=== PATIENT | female | born 1930 | race Caucasian/White ===

== ENCOUNTER 2017-12-22 21:31 | Inpatient (IN) | payer OTHER ==
[~2017-12-22] VITALS: Ht 165.1 cm; Wt 51.7 kg
[~2017-12-22 21:31] MED LIST: ALPRAZOLAM 0.50.5 M1 PO; ATENOLOL 25 MG25 M1 PO; BENTYL10 MG PO; CARAFATE 1 GM TA1 G1 PO; CEPHALEXIN 500500 M2 PO; COZAAR 50 MG TA50 M2 PO; DEXILANT30 MG PO; DEXILANT60 MG PO; DULCOLAX5 MG PO; FLOMAX0.4 MG PO; LOSARTAN POTASS50 MG; LUMIGAN2.5 M1 OP; MAGIC MOUTHWASH SWISH&SPIT; MIRALAX17 GM PO; MISC; NITROFURANTOIN100 MG PO; PREVALITE; PRIMSOL50 MG/5 ML PO; PROLOPRIM100 MG PO; SENOKOT-S1 TA1 PO; SERTRALINE HCL50 MG PO; SLO-NIACIN250 MG PO; ZANTAC 150MG T150 M1 PO
[2017-12-22 21:35] VITALS: BP 151/52
[2017-12-22 22:36] LABS: URINE BILIRUBIN NEGATIVE (Negative); URINE BLOOD NEGATIVE (Negative); URINE CLARITY CLEAR; URINE COLOR YELLOW; URINE GLUCOSE-RANDOM NEGATIVE (Negative); URINE KETONES NEGATIVE (Negative); URINE LEUKOCYTES-REFLEX NEGATIVE (Negative); URINE NITRITE-REFLEX NEGATIVE (Negative); URINE PROTEIN NEGATIVE (Negative); URINE UROBILINOGEN 0.2 E.U./dl (0.2-1.0)
[2017-12-22 22:47] LABS: ABSOLUTE LYMPHOCYTES 1.1 thou/uL (0.8-5.3); ABSOLUTE MONOCYTES 0.4 thou/uL (0.0-1.2); ABSOLUTE NEUTROPHILS 2.8 thou/uL (1.6-8.1); BASOPHILS 0.9 %; EOSINOPHILS 0.7 %; HEMATOCRIT 34.5 % (37.0-47.0); HEMOGLOBIN 11.6 gm/dL (12.0-15.0); LYMPHOCYTES 24.3 %; MCH 29.5 pg (26.0-34.0); MCHC 33.8 g/dL (28.0-37.0); MCV 87.3 fL (80.0-100.0); MONOCYTES 9.8 %; MPV 9.5 fl. (7.2-11.1); NUCLEATED RBCS 0 /100WBC; PLATELET COUNT* 147 thou/uL (150-400); POLYS 64.3 %; RBC 3.95 mil/uL (4.20-5.00); RDW-CV 13.4 % (10.5-14.5); WBC 4.4 thou/uL (4.0-11.0)
[2017-12-22 22:56] LABS: ANION GAP 6 mmol/L (7-16); BUN 17 mg/dL (7-18); CALCIUM 9.6 mg/dL (8.5-10.1); CHLORIDE 104 mmol/L (98-107); CO2 30 mmol/L (21-32); CREATININE 0.7 mg/dL (0.6-1.3); GLUCOSE 83 mg/dL (70-99); POTASSIUM 3.8 mmol/L (3.5-5.1); SODIUM 140 mmol/L (136-145)
[2017-12-22 23:07] LABS: ALBUMIN 3.9 g/dL (3.4-5.0); ALKALINE PHOSPHATASE 98 U/L (46-116); NT-PRO BRAIN NAT PEPTIDE 247 pg/mL (<300); SGOT 18 U/L (15-37); SGPT 19 U/L (30-65); TOTAL BILIRUBIN 0.3 mg/dL (<0.1-1.0); TOTAL PROTEIN 7.2 g/dL (6.4-8.2); TROPONIN-I LEVEL <0.06 ng/mL (<0.06)
[2017-12-23] VITALS (7 sets, daily range): BP systolic 121–145; BP diastolic 46–60
[2017-12-23] MEDS ORDERED: ASPIR 8181 M1 PO (04:29)
--- NOTE | 2017-12-23 06:41 | NUR ---
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
--- NOTE | 2017-12-23 13:08 | EKG ---
[place] [address] ELECTROCARDIOGRAM REPORT Name: PELON GARCIA Room: [address] IN [facility]#: [id number] Admission: 12/23/17 Attend Phys: Denisha Amato Discharge: Date of : 32 Report #: [id number] THIS REPORT FOR: //name// [facility] ED Test Date: 2017-12-22 Test Time: 22:32:11 Pat Name: PELON GARCIA Department: Room: Gender: F Clinical Office Technician: : 1930 Requested By: Mona Joyce Order Number: [id number] MD: Jeancarlos Eisenberg Measurements Intervals [place] Rate: 65 P: 0 MD: 54 QRS: -36 QRSD: 100 T: 55 QT: 415 QTc: 432 Interpretive Statements Sinus rhythm Atrial premature complexes Short MD interval Left axis deviation Compared to ECG 05/16/2016 19:19:33 Short MD interval now present Electronically Signed On 12-23-2017 13:08:29 CDT by Jeancarlos Eisenberg [email or web address] <ELECTRONICALLY SIGNED> By: Jeancarlos Eisenberg MD, [facility] 12/23/17 1308 31 31 Jeancarlos Eisenberg MD, [facility] /EPI
--- NOTE | 2017-12-23 13:36 | NUR ---
ASSUMED PT CARE AT 0700 PT IS ALERT AND ORIENTED X 4 PT IS UP WITH SBA PT IS A FALL RISK BED ALARM IS ON PT IS GETTING UP WITHOUT NOTIFYING STAFF PT HAS BEEN EDUCATED AND REEDUCATED PT STATES UNDERSTANDING AND THEN REFUSED TO CALL, PT WANTS TO DISCHARGE THIS NURSE EXPLAINED THAT THE OHYSICIAN IS THE ONE WHO WILL PUT IN ORDERS FOR DISCHARGE OR PT CAN LEAVE AGAINST MEDICAL ADVICE PT STATES SHE WILL THINK ABOUT IT, PT CONTINUES TO BE AGITAED AND INAPPROPRIATE YELLING AT STAFF PHYSICIAN IS NOTIFIED AND PT EDUCATED THAT PT IS AWARE AND WILL ROUND, PT IS SR ON THE MONITOR, WILL CONTINUE TO MONITOR
[2017-12-23] MEDS ORDERED: PLAVIX 75 MG TA75 M1 PO (17:07)
[2017-12-24 03:42] VITALS: BP 125/69
--- NOTE | 2017-12-24 05:07 | NUR ---
ASSUMED CARE OF PATIENT AT 1900 THE PATIENT SB ON MONITOR DURING SHIFT NOTED PAUSES AT APPROX 0030 PATIENT REMAINED ASYMPTOMATIC RHYTHM CHANGED FROM SR TO SB EKG OBTAINIED DUE TO SHIFT WITHOUT SIGNIGFICANT FINDINGS REMAINS ADMISSION EKG PHYSICIAN TO BE NOTIFIED IN AM WITHOUT S/SX OF ACUTE DISTRESS O2 SAT MAINTAINED ON RA CONTINUES TO BE UP WITH ASSIST OF 1 TO THE BR ROUTINE REGIMEN CONTINUES TO BE EFFECTIVE FOR SX MANAGEMENT SAFETY INTERVENTIONS CONTINUE BED LOWERED WHEELS LOCKED CALL LIGHT IN REACH SIDE RAILS UP REPORT TO BE GIVEN TO ONCOMING TASHA
[2017-12-24 08:00] VITALS: BP 169/53
--- NOTE | 2017-12-24 10:23 | NUR ---
ASSUMED CARE OF PT AT 0730. PT RESTING IN BED WAITING FOR BREAKFAST. PT A&0X4, DENIES ANY PAIN OR SHORTNESS OF BREATH AT THIS TIME. PT TRACING SB WITH PAC'S ON THE RESTAURANT GENERAL MANAGER. CARDIOLOGY CONSULT IN PLACE FOR PAUSES. PT ON RA SAT 94%. EDEMA NOTED TO BILATERAL LE. PT UP SBA TO BATHROOM. AM ASSESSMENT CHARTED. MEDICATIONS PER MAR. PT REPOSITIONS SELF. HOURLY ROUNDING OBSERVED. BED IN LOW POSITION. BED ALARM IN PLACE. CALL LIGHT WITHIN REACH. WILL CONTINUE PLAN OF CARE.
[2017-12-24 13:06] VITALS: BP 150/63
--- NOTE | 2017-12-24 13:22 | EKG ---
[place] [address] ELECTROCARDIOGRAM REPORT Name: PELON GARCIA Room: [address] ADM IN M.R.#: [id number] Admission: 12/23/17 Attend Phys: Denisha Amato Discharge: Date of : 32 Report #: [id number] THIS REPORT FOR: //name// [facility] Test Date: 2017-12-23 Test Time: 23:29:25 Pat Name: PELON GARCIA Department: Room: [address] Gender: F Log Sorting Supervisor: UNKNOWN : 1930 Requested By: Juan Brandt Order Number: [id number] MD: Jeancarlos Eisenberg Measurements Intervals [place] Rate: 55 P: -90 IL: 113 QRS: -31 QRSD: 109 T: 38 QT: 461 QTc: 441 Interpretive Statements Sinus or ectopic atrial rhythm Borderline short [place] interval Left axis deviation Compared to ECG 12/22/2017 22:32:11 Ectopic atrial rhythm now present Sinus rhythm no longer present Atrial premature complex(es) no longer present Electronically Signed On 12-24-2017 13:21:45 CDT by Jeancarlos Eisenberg [email or web address] <ELECTRONICALLY SIGNED> By: Jeancarlos Eisenberg MD, FAC 12/24/17 1321 2329 2329 Jeancarlos Eisenberg MD, FACC /EPI
[2017-12-24 17:24] VITALS: BP 125/69
--- NOTE | 2017-12-24 17:34 | NUR ---
NO ACUTE CHANGES THROUGHOUT SHIFT. REFER TO CHARTING. CARDIOLOGY CONSULT IN PLACE- DR AGUDELO HERE TO SEE PT. ORDER RECEIVED FOR ECHO AND TO REMAIN ON TELEMETRY. URINALYSIS NEEDS TO BE OBTAINED. PT CONTINUES TO TRACE SB WITH PAC'S ON THE POLICE DETECTIVE. RATE IN THE 50'S. PT ASYMPTOMATIC. PT ST WITH ACTIVITY. ON RA SAT UPPER 90'S. DENIES ANY SHORTNESS OF BREATH. PT UP SBA TO BATHROOM. PT UPSET THIS AFTERNOON NO FAMILY HAS CAME TO VISIT. THIS RN AND OTHER RN'S AND DR HOLLINGSWORTH IN TO CHEER PT UP. PT SAID THAT MADE HER FEEL BETTER. MEDICATIONS PER OCT. PT REPOSITIONS SELF. HOURLY ROUNDING OBSERVED. BED IN LOW POSITION. BED ALARM IN PLACE. FALL PRECAUTIONS IN PLACE. CALL LIGHT WITHIN REACH. WILL CONTINUE PLAN OF CARE.
[2017-12-24 20:10] VITALS: BP 124/61
[2017-12-24 23:53] VITALS: BP 122/66
[2017-12-25] VITALS (9 sets, daily range): BP systolic 86–142; BP diastolic 44–77
--- NOTE | 2017-12-25 05:36 | NUR ---
ASSUMED CARE AROUND 1930. PT A/OX4, ANXIOUS, [place]. PT TALKING ALOT ABOUT FAMILY ISSUES AND APPEARED STRESSED. PRN XANAX GIVEN. TELE MONITOR TRACING SR/PAC'S AND AFIB WITH HR 90-110'S. ON ROOM AIR. IV SALINE LOCKED. UP SBA TO BR. PT NOT USING CALL LIGHT, BEDALARM IN PLACE. VSS, LOW GRADE TEMP 99.2 AT START OF NIGHT. PT CONTINUES REPORTING HEARTBURN AND FOOT DISCOMFORT. SEE CHARTING. CALL LIGHT IN REACH, WILL CONTINUE WITH PLAN OF CARE.
[2017-12-25 11:52] LABS: ABSOLUTE LYMPHOCYTES 1.2 thou/uL (0.8-5.3); ABSOLUTE MONOCYTES 0.4 thou/uL (0.0-1.2); ABSOLUTE NEUTROPHILS 3.2 thou/uL (1.6-8.1); EOSINOPHILS 0.7 %; HEMATOCRIT 39.3 % (37.0-47.0); HEMOGLOBIN 13.1 gm/dL (12.0-15.0); LYMPHOCYTES 24.9 %; MCH 29.3 pg (26.0-34.0); MCHC 33.3 g/dL (28.0-37.0); MONOCYTES 7.8 %; MPV 10.1 fl. (7.2-11.1); NUCLEATED RBCS 0 /100WBC; PLATELET COUNT* 166 thou/uL (150-400); POLYS 65.6 %; RBC 4.47 mil/uL (4.20-5.00); RDW-CV 13.4 % (10.5-14.5); WBC 4.9 thou/uL (4.0-11.0)
[2017-12-25 12:06] LABS: ALBUMIN 3.3 g/dL (3.4-5.0); CALCIUM 8.8 mg/dL (8.5-10.1); CREATININE 0.7 mg/dL (0.6-1.3); POTASSIUM 3.6 mmol/L (3.5-5.1); TOTAL BILIRUBIN 0.5 mg/dL (<0.1-1.0); TOTAL PROTEIN 6.6 g/dL (6.4-8.2)
--- NOTE | 2017-12-25 13:06 | 2DMMODE ---
[place] [address] 2 D/M-MODE ECHOCARDIOGRAM Name: PELON GARCIA Room: [address] IN [facility]#: [id number] Admission: 12/23/17 Attend Phys: Juan Brandt Discharge: Date of : 32 Date of Service: 12/25/17 1306 Report #: [id number] THIS REPORT FOR: //name// APPROVED REPORT Study performed: 12/25/2017 09:37:16 EXAM: Comprehensive 2D, Doppler, and color-flow Echocardiogram Patient Location: In-Patient Room #: [facility] Status: routine BSA: 1.59 HR: 101 bpm BP: 142/74 mmHg Rhythm: Atrial Fibrillation Other Information Study Quality: Good Indications Arrhythmia Atrial Fibrillation 2D Dimensions LVEF(%): 68.25 (>50%) IVSd: 10.93 (7-11mm) LVOT Diam: 20.34 (18-24mm) LVDd: 41.91 mm PWd: 8.75 (7-11mm) Ascending Ao: 35.77 (22-36mm) LVDs: 26.09 (25-40mm) Aortic Root: 29.56 mm Lazo's LVEF: 68.25 % Volumes Left Atrial Volume (Systole) LA ESV Index: 51.30 mL/m2 Aortic Valve AoV Peak Jerry.: 1.11 m/s AO Peak Gr.: 4.95 mmHg LVOT Max P.67 mmHg AO Mean Gr.: 2.49 mmHg LVOT Mean P.09 mmHg LVOT Max V: 0.82 m/s AO V2 VTI: 18.19 cm LVOT Mean V: 0.46 m/s NICOLLE (VTI): 2.55 cm2 LVOT V1 VTI: 14.28 [place] [address] 2 D/M-MODE ECHOCARDIOGRAM Name: PELON GARCIA Room: [address] IN ..#: [id number] Admission: 12/23/17 Attend Phys: Juan Brandt Discharge: Date of : 32 Date of Service: 12/25/17 1306 Report #: [id number] MV Decel. Time: 160.66 ms MV PHT: 46.59 ms MVA (PHT): 4.72 cm2 TDI Medial E' Jerry.: 0.10 m/s Lateral E' Jerry.: 0.11 m/s Pulmonary Valve PV Peak Jerry.: 1.50 m/s PV Peak Gr.: 9.04 mmHg Tricuspid Valve TR Peak Gr.: 22.10 mmHg RVSP: 27.00 mmHg Left Ventricle The left ventricle is normal size. There is normal LV segmental wall motion. There is normal left ventricular wall thickness. Left ventricular systolic function is normal. The left ventricular ejection fraction is within the normal range. LVEF is 55-60%. This study is not technically sufficient to allow evaluation of the LV diastolic function due to atrial fibrillation. Right Ventricle The right ventricle is normal size. The right ventricular systolic function is normal. Atria Left atrium is severely dilated. Right atrium is mildly dilated. Aortic Valve Mild aortic valve sclerosis. No aortic regurgitation is present. There is no aortic valvular stenosis. Mitral Valve The mitral valve is normal in structure. Mild mitral regurgitation. No evidence of mitral valve stenosis. Tricuspid Valve The tricuspid valve is normal in structure. Mild tricuspid regurgitation. The RVSP is ___27___ mmHg. Pulmonic Valve The pulmonary valve is normal in structure. [place] [address] 2 D/M-MODE ECHOCARDIOGRAM Name: PELON GARCIA Berry Room: [address] IN [facility]#: [id number] Admission: 12/23/17 Attend Phys: Juan Brandt Discharge: Date of : 32 Date of Service: 12/25/17 1306 Report #: [id number] Great Vessels The aortic root is normal in size. IVC is normal in size and collapses with >50% inspiration Pericardium There is no pericardial effusion. <Conclusion> LVEF is 55-60%. Mild mitral regurgitation. Left atrium is severely dilated. Right atrium is mildly dilated. <ELECTRONICALLY SIGNED> By: Mehran Goddard MD, [facility] 12/25/17 1306 05 05 Mehran Goddard MD, FACC /INF
[2017-12-25 15:19] LABS: URINE BILIRUBIN NEGATIVE (Negative); URINE BLOOD NEGATIVE (Negative); URINE CLARITY CLEAR; URINE COLOR YELLOW; URINE GLUCOSE-RANDOM NEGATIVE (Negative); URINE KETONES NEGATIVE (Negative); URINE LEUKOCYTES NEGATIVE (Negative); URINE NITRITE NEGATIVE (Negative); URINE PROTEIN NEGATIVE (Negative); URINE UROBILINOGEN 0.2 E.U./dl (0.2-1.0)
--- NOTE | 2017-12-25 16:12 | NUR ---
Pt is A&O. Resides at home with dtr and dtr's boyfriend. Pt very bitter regarding how much her "life has sucked." Pt reports being independent with ADLs, continue to cook and clean. Dtr's BF does the driving or Pt uses a cab. Pt has a walker and cane at home that she can use as needed, stated that she has not needed to use either yet. Pt stated that she had a fall here in the hospital, nurse aware. CM left SNF list with Pt in case she needs skilled at dc. No hx of HH or SNF. Following.
--- NOTE | 2017-12-25 17:29 | NUR ---
ASSUMED PT CARE AT 0730, FULL ASSESMENT DONE CHARTED. PT A/O X3 THIS AM, X4 THIS AFTERNOON. PT HAS SOME MILD CONFUSION, PT BECOMES UPSET WHEN ASKED ORIENTATION QUESTIONS. PTS BP BECAME LOW THIS AFTERNOON, PT DENIES DIZZYNESS. PT WAS IN THE BATHROOM AND STATES" MY LEGS GAVE OUT, PT CALLED FOR STAFF AND WAS FOUND ON HER KNEES IN FRONT OF SINK. PTS HR IN THE 130-140'S AND BP LOW. PT HELPED BACK TO BED AND MONITORED CLOSLY. PT INSTRUCTED NOT TO GET OUT OF BEED WITHOUT HELP. PT VERBALIZED UNDERSTANDING. PT VERBALIZEES WANT TO GO HOME TOMORROW. DISCUSSED PLAN OF CARE WITH PT, SHE IS RESTING IN BED COMFORTABLY AT THIS TIME. WILL CONTINUE TO MONITOR.
[2017-12-26 00:51] VITALS: BP 98/44
--- NOTE | 2017-12-26 03:05 | NUR ---
ASSUMED PT CARE AT 1930, PT IS A&OX4, PT REQUESTED PRN ANIXIETY MEDICATION, MEDICATION GIVEN PER OCT. PT IS TRACING AFIB ON THE MONITOR, ON RA SATTING MID TO HIGH 90'S. PT IS UP WITH ONE TO THE BSC, PT USES HER CALL LIGHT. PT IS VERY [place]. BED IN LOW POSITION, CALL LIGHT IN REACH, BED ALARM ON, YELLOW ARM BAND AND SOCKS IN PLACE. HOURLY ROUNDING COMPLETED FOR PT SAFETY.
[2017-12-26 04:43] VITALS: BP 104/65
[2017-12-26 07:45] VITALS: BP 129/78
--- NOTE | 2017-12-26 09:33 | NUR ---
ASSUMED PT CARE AT 0730, FULL ASSESMENT DONE CHARTED.PT A/O X4, ANXIOIUS, STATES SHE WANTS TO KNOW IF SHE IS GOING HOME TODAY. PTS VSS, AFIB ON THE MONITOR. PT EDUCATED ON MEDS. SHE VERBALIZED UNDERSTANDING. FALL PRECATUIONS IN PLACE. BED ALARM ON, CALL LIGHT IN REACH. WILL CONTINUE WITH PLAN OF CARE.
[2017-12-26 11:33] VITALS: BP 129/78
--- NOTE | 2017-12-26 11:49 | NUR ---
RECEIEVED O.T. ORDER AND CHART REVIEWED. PT. DENIES ANY NEED FOR O.T. SERVICES AND SAYS SHE IS INDEPENDENT WITH ADLS/IADLS AT HOME. O.T. REMINDED PT. THAT HER KNEES BUCKLED YESTERDAY AND SHE STATES SHE IS GOING HOME TODAY AND HAS A CARD TO NOTIFY SOMEONE IF SHE NEEDS ANYTHING. THUS, O.T. SERVICES ARE NOT INDICATED PER PT. PREFERENCE AT THIS TIME.
[2017-12-26 11:58] VITALS: BP 123/71
[2017-12-26] MEDS ORDERED: FLECAINIDE ACET50 M1 PO (12:33)
[2017-12-26 14:59] VITALS: BP 102/56
== END 2017-12-26 16:32 | disposition home or self-care (01) | DRG 300 ==
LOC: M.ERS 21:31 → M.TBA-ER 12-23 01:33 → M.2W 12-23 01:33
PROVIDERS: Internal Medicine; Personal Emergency Response Attendant; ADMIT Internal Medicine
DX: I73.9 Peripheral vascular disease, unspecified (principal); I48.92 Unspecified atrial flutter; D68.59 Other primary thrombophilia; K27.9 Peptic ulcer, site unspecified, unspecified as acute or chronic, without hemorrhage or perforation; I25.10 Atherosclerotic heart disease of native coronary artery without angina pectoris; J44.9 Chronic obstructive pulmonary disease, unspecified; I10 Essential (primary) hypertension; F41.9 Anxiety disorder, unspecified; F17.210 Nicotine dependence, cigarettes, uncomplicated; K21.9 Gastro-esophageal reflux disease without esophagitis; H81.90 Unspecified disorder of vestibular function, unspecified ear; F32.9 Major depressive disorder, single episode, unspecified; Z88.0 Allergy status to penicillin; Z88.2 Allergy status to sulfonamides; Z98.890 Other specified postprocedural states

== ENCOUNTER 2018-01-15 23:02 | Emergency (ER) | payer OTHER ==
[~2018-01-15] VITALS: Ht 165.1 cm
[~2018-01-15 23:02] MED LIST changes: +ASPIR 8181 M1 PO; +FLECAINIDE ACET50 M1 PO; +PLAVIX 75 MG TA75 M1 PO
[2018-01-15 23:52] LABS: ABSOLUTE LYMPHOCYTES 1.1 thou/uL (0.8-5.3); ABSOLUTE MONOCYTES 0.3 thou/uL (0.0-1.2); BASOPHILS 0.9 %; EOSINOPHILS 0.9 %; HEMATOCRIT 35.3 % (37.0-47.0); HEMOGLOBIN 11.9 gm/dL (12.0-15.0); LYMPHOCYTES 23.8 %; MCH 29.2 pg (26.0-34.0); MCHC 33.8 g/dL (28.0-37.0); MCV 86.5 fL (80.0-100.0); MONOCYTES 7.5 %; MPV 9.4 fl. (7.2-11.1); NUCLEATED RBCS 0 /100WBC; PLATELET COUNT* 138 thou/uL (150-400); POLYS 66.9 %; RBC 4.09 mil/uL (4.20-5.00); RDW-CV 13.6 % (10.5-14.5); WBC 4.5 thou/uL (4.0-11.0)
[2018-01-16] LABS: URINE BILIRUBIN NEGATIVE (Negative); URINE BLOOD TRACE (Negative); URINE CLARITY CLEAR; URINE COLOR YELLOW; URINE GLUCOSE-RANDOM NEGATIVE (Negative); URINE KETONES NEGATIVE (Negative); URINE LEUKOCYTES-REFLEX NEGATIVE (Negative); URINE NITRITE-REFLEX NEGATIVE (Negative); URINE PROTEIN NEGATIVE (Negative); URINE UROBILINOGEN 0.2 E.U./dl (0.2-1.0)
[2018-01-16 00:02] LABS: ANION GAP 6 mmol/L (7-16); APTT 25.2 Seconds (25.0-31.3); BUN 18 mg/dL (7-18); CALCIUM 9.1 mg/dL (8.5-10.1); CHLORIDE 99 mmol/L (98-107); CO2 29 mmol/L (21-32); CREATININE 0.8 mg/dL (0.6-1.3); GLUCOSE 106 mg/dL (70-99); INR 1.1; POTASSIUM 4.1 mmol/L (3.5-5.1); PROTIME 10.4 Seconds (9.20-11.50); SODIUM 134 mmol/L (136-145)
[2018-01-16 00:09] LABS: ALBUMIN 3.6 g/dL (3.4-5.0); ALKALINE PHOSPHATASE 101 U/L (46-116); LIPASE 59 U/L (73-393); SGOT 19 U/L (15-37); SGPT 16 U/L (30-65); TOTAL BILIRUBIN 0.4 mg/dL (<0.1-1.0); TOTAL PROTEIN 6.7 g/dL (6.4-8.2); TROPONIN-I LEVEL <0.06 ng/mL (<0.06)
[2018-01-16 02:50] VITALS: BP 190/100
--- NOTE | 2018-01-16 14:03 | EKG ---
[place] [address] ELECTROCARDIOGRAM REPORT Name: PELON GARCIA Room: [facility]#: [id number] Admission: 01/15/18 Attend Phys: Discharge: 01/16/18 Date of : 32 Report #: [id number] THIS REPORT FOR: //name// [facility] ED Test Date: 2018-01-16 Test Time: 00:07:52 Pat Name: PELON GARCIA Department: Room: Gender: F Supervisor Assembling: DOREEN : 1930 Requested By: Romel Boggs Order Number: [id number] MD: Gilmer Charles Measurements Intervals [place] Rate: 75 P: [place]: QRS: -70 QRSD: 125 T: 48 QT: 410 QTc: 458 Interpretive Statements Atrial fib-flutter Nonspecific IVCD with LAD Left ventricular hypertrophy Compared to ECG 12/23/2017 23:29:25 Intraventricular conduction delay now present Left ventricular hypertrophy now present Atrial fib-flutter is noted Electronically Signed On 01-16-2018 14:03:08 CDT by Gilmer Charles [email or web address] <ELECTRONICALLY SIGNED> By: Gilmer Charles MD, [facility] 01/16/18 1403 0007 0007 Gilmer Charles MD, [facility] /EPI
== END 2018-01-16 02:50 | disposition home or self-care (01) ==
LOC: M.ERS 23:02
PROVIDERS: Nurse Practitioner Family
DX: I16.0 Hypertensive urgency (principal); J44.9 Chronic obstructive pulmonary disease, unspecified; F32.9 Major depressive disorder, single episode, unspecified; F41.9 Anxiety disorder, unspecified; F17.210 Nicotine dependence, cigarettes, uncomplicated; Z87.440 Personal history of urinary (tract) infections; Z90.89 Acquired absence of other organs; Z90.49 Acquired absence of other specified parts of digestive tract; Z85.828 Personal history of other malignant neoplasm of skin; Z88.0 Allergy status to penicillin; Z88.2 Allergy status to sulfonamides